=== PATIENT | male | born 1940 | race Caucasian/White ===

== ENCOUNTER 2020-08-20 13:26 | Inpatient (IN) | payer MEDICARE ==
[2020-08-20] MEDS ORDERED: Iopamidol-370 76% 500 ML 1 ML ONE (15:22)
[2020-08-20] MEDS ORDERED: Morphine 4 MG/ML VIAL ONE (15:34)
[2020-08-20 15:40] LABS: Base Excess-Venous -0.7 mmol/L (-2.0 to 3.0); Bicarbonate (HCO3v) 24.1 mmol/L (22.0-28.0); CO2 Tension (PvCO2) 39.8 mmHg (40.0-50.0); Calcium, Ionized 0.97 mmol/L (1.15-1.33); Chloride 100 mmol/L (98-107); Hemoglobin - Calc 13.8 g/dL (14.0-18.0); Potassium 4.1 mmol/L (3.5-5.1); Sodium 132 mmol/L (138-145); T. Carbon Dioxide 25.4 mmol/L (22.0-28.0); vO2 Saturation-calc 96.6 % (60.0-85.0)
[2020-08-20 15:52] LABS: ALT (SGPT) Less than 7 U/L (8-55); AST (SGOT) 13 U/L (5-34); Albumin 2.7 g/dL (3.4-4.8); Alkaline Phosphatase 101 U/L (40-110); Anion Gap 15 mmol/L (10-20); BUN (Urea Nitrogen) 29 mg/dL (8.4-25.7); Bilirubin, Total 0.5 mg/dL (0.2-1.2); Calc. Creatinine Clearance 0 mL/min (70-130); Calcium 8.4 mg/dL (7.8-10.44); Carbon Dioxide 23 mmol/L (23-31); Chloride 99 mmol/L (98-107); Estimated GFR-MDRD 39; Glucose 265 mg/dL (83-110); Potassium 4.2 mmol/L (3.5-5.1); Protein, Total 6.7 g/dL (5.8-8.1); Sodium 133 mmol/L (136-145)
--- NOTE | 2020-08-20 16:03 | CT ---
CT ANGIOGRAM THORAX WITH CONTRAST: (CTA pulmonary angiogram) DATE: 08/20/2020 HISTORY: 80-year-old male with cough, fever, chest pain, and dyspnea TECHNIQUE: IV injection of iodinated contrast. Scan acquisition timing attempted to coincide with iodinated contrast bolus reaching maximal density in pulmonary arteries. 3-D MIP reconstructions. FINDINGS: There is right inferior hilar soft tissue density material surrounding and severely narrowing the rig ht lower lobe bronchus, completely occluding the anterobasilar segmental branch, and severely narrowing the other branches. This soft tissue density material is contiguous with the adjacent conso lidated portion of the anterolateral basilar segment of the right lower lobe, and therefore measurement is difficult, but it is estimated to be approximately 2.5 x 1.5 x 2.5 cm. The broad conso lidation involving the anterobasilar segment of the right lower lobe is consistent with postobstructive atelectasis and/or pneumonitis. Posterior to this, there are very extensive groundgla ss/alveolar infiltrates throughout the rest of the right lower lobe remaining basilar segments and much of the apical segment, consistent with pneumonitis. The right upper lobe, right middle lobe, and the entire left lung, are clear. No pleural effusion or pneumothorax. Trachea and bilateral mainstem bronchi are patent and clear. Multiple mildly enlarged noncalcified mediastinal lymph nodes. Most of these are nonspecific, but the re is one right paratracheal lymph node measuring measuring approximately 1.5 x 1 x 2 cm that is somewhat suspicious. There is excellent opacification of pulmonary arteries. There is no pulmonary thromboembolism. No thoracic aortic aneurysm, dissection, or rupture. No pericardial effusion. Approximately 15-20% herniation of stomach into the chest. IMPRESSION: 1) small circumferential mass extrinsically compressing and occluding the anteromedial basilar segmen rui branch of right lower lobe bronchus, highly suspicious for lung cancer. Recommend bronchoscopy. 2) associated broad consolidation of anterobasal segment of right lower lobe: Postobstructive atelect asis versus postobstructive pneumonia. 3) severe narrowing of other basilar segmental branches of right lower lobe bronchus. 4) diffuse infiltrates throughout the rest of the right lower lobe: Evidence for right lower lobe pne umonia. 5) no pulmonary thromboembolism. 6) possible metastatic mediastinal lymphadenopathy.
[2020-08-20 17:41] LABS: SARS-CoV-2 NAA Rapid Test Not Detected (NotDetected)
--- NOTE | 2020-08-20 18:28 | HP ---
PRIMARY CARE PHYSICIAN: Jorge Luis Santiago. CHIEF COMPLAINT: Chest pain and cough. HISTORY OF PRESENT ILLNESS: This is an 80-year-old white male with past medical history consisted of diabetes mellitus type 2, insulin dependent, who came in with a 2-3 week history of right-sided chest pain with severe cough and some confusion and hallucination episodes. The patient has been having progressive symptoms over about 2-3 weeks. His cough has been productive of a very small amount of clear sputum, no blood. He also has had some subjective fevers and chills. His temperature has only gone up to 98.6, however, usually runs around 96. The patient eventually went into the [place] [facility]. There, he had tachycardia, normal oxygen saturations on room air, temperature up to 100.0. He was given morphine with marked improvement in his symptoms, also was loaded with Rocephin and azithromycin and given Ketoralac IV. The patient was found to have sepsis and acute renal failure with lactic acidosis. He was given 2 L of fluid along with some insulin for hyperglycemia and then transferred to our emergency room. He had a CT of the chest done in [place], which showed atelectasis in the posterior basilar segment of the right lower lobe with abrupt termination of the bronchus worrisome for endobronchial lesion. He was transferred here. The patient had an elevated D-dimer. After the fluids were given, his creatinine was rechecked and it had come down to 1.6, so he had a CT angio, which showed no evidence of clots, but again demonstrated a small circumferential mass extrinsically compressing and occluding the anterior medial basilar segment branch of the right lower lobe bronchus, highly suspicious for lung cancer with recommendation of bronchoscopy. Also had infiltrates distal to this concerning for a postobstructive pneumonia with infiltrates throughout the rest of the right lower lobe. When I saw him, the patient was breathing easily without any further pain and having intermittent coughing. REVIEW OF SYSTEMS: CONSTITUTIONAL: See HPI. EYES: No double vision or blurred vision. ENT: No congestion, drainage, or sore throat. CARDIOVASCULAR: No cardiac chest pain. No palpitations or racing heart. PULMONARY: See HPI. No significant shortness of breath. No pain with deep breaths, just with cough. The pain is in the anterior axillary line along the lower right chest and is not reproducible to palpation. GASTROINTESTINAL: No abdominal pain. No nausea or vomiting. No diarrhea or constipation. GENITOURINARY: No dysuria or hematuria. He does have urinary frequency; in the past, this has responded to medications, but for the last four weeks or so, it has been not responding to his medications from his PCP. MUSCULOSKELETAL: No muscle aches or joint pain. SKIN: No rashes or other lesions he has noted. NEUROLOGIC: No numbness, tingling, or focal weakness. PSYCHIATRIC: The patient reports that for the last 2-1/2 to 3 weeks as per the HPI, he has been having confusion. He reports that sometimes if he does not focus very hard, he will start doing odd things like taking off his dog's collar for no reason or sometimes having some odd hallucinations or I think he is putting butter on some bread and realizing he is not holding anything, this has been pretty persistent for the last 2-1/2 weeks. It is not there all the time. It does come and go, it is worse at night. He said he is able to shake himself out of it pretty quick. PAST MEDICAL HISTORY: 1. Diabetes mellitus type 2, insulin dependent. 2. Diabetic neuropathy of the lower extremities. 3. Hyperlipidemia. 4. Left-sided abdominal wall hernia. PAST SURGICAL HISTORY: Adenoidectomy and tonsillectomy. PAST PSYCHIATRIC HISTORY: Anxiety and depression. SOCIAL HISTORY: No tobacco use or history of use. No illicit drugs. He drinks socially about once a month. The patient is . He is a full code. Should he be incapacitated, his would be his medical decision maker, her name is Lisseth Saab. FAMILY HISTORY: He has one cousin, who has severe diabetes as well, but no other family medical history. ALLERGIES: NO KNOWN DRUG ALLERGIES. CURRENT MEDICATIONS: 1. Simvastatin 20 mg daily. 2. Janumet mg one tablet twice a day. 3. Glipizide 10 mg two times a day. 4. Lisinopril 20 mg daily. 5. Lamictal 100 mg twice a day. 6. Basaglar insulin 20 units subcutaneous twice a day. 7. Ultram 50 mg 2 tablets every 6 hours as needed for pain. PHYSICAL EXAMINATION: VITAL SIGNS: Blood pressure 116/73, pulse 84, respirations 23, temperature 98.4, and O2 saturation 98% on room air. GENERAL: This is a well-developed, well-nourished white male, in no acute distress. HEENT: Pupils are equal, round, and reactive to light. Oropharynx is clear without lesions, erythema, or exudate. NECK: Supple. No lymphadenopathy. No thyroid nodules or enlargement. No JVD. HEART: Regular rate and rhythm. No murmurs, rubs, or gallops. LUNGS: The patient has clear breath sounds in the left lung. In the right lung at the base, there are some rhonchi and some diminished breath sounds to about the mid lung. The remainder of the lung is clear. No tenderness to palpation of the chest wall. Pain is not reproducible. ABDOMEN: Soft, nontender to palpation. Normoactive bowel sounds. No hepatosplenomegaly or other masses. EXTREMITIES: No clubbing, cyanosis, or edema. SKIN: No rashes or other lesions noted. NEUROLOGIC: The patient moves all extremities equally. No facial droop. PSYCHIATRIC: Alert and oriented x3. Normal mood and affect. He has had reports of hallucinations as per the HPI, but does not actively have any right now. LABORATORY DATA: CBC with a white blood cell count of 20,000, hemoglobin and hematocrit normal, platelet count 484, neutrophils are 79%. D-dimer is elevated at 1.55. VBG has normal pH, pCO2 of 39, pO2 of 87. Complete metabolic panel is notable for initially a sodium of 129 up to 133 after fluids, potassium 4.2, chloride 99, bicarb 23, anion gap 15, BUN 29, and creatinine was 1.96, down to 1.68 after fluids. Blood glucose initially 543 down to 265 after insulin and fluid administration. Albumin was low at 2.7. The rest of CMP was normal. Troponin was negative x2. Brain natriuretic peptide was negative. Lactic acid was initially elevated at 3.0, down to 2.[address] of the chest as per the HPI. CT of the brain shows no evidence for acute intracranial process. Chest x-ray done in the emergency room, I did review the chest x-ray as well as radiologist's report. It shows right-sided pleural effusion with some parenchymal changes in the right lung base, possibly pneumonia, atelectasis, or aspiration. EKG in the emergency room shows normal sinus rhythm at 84 beats per minute with no ST elevation. There is some T-wave flattening in II, III, and aVF. ASSESSMENT: 1. Community-acquired pneumonia, postobstructive. We will continue Rocephin and vancomycin. We will have pharmacy dose the vancomycin. Blood cultures are pending. 2. Right circumferential bronchial mass concerning for likely cancer. We will consult Pulmonology. The patient will need a bronchoscopy for diagnosis. 3. Diabetes mellitus type 2, insulin dependent with hyperglycemia. Blood glucose better with insulin and fluids. We will resume the patient's home long-acting insulin and put him on moderate sliding scale q.a.c. and at bedtime. 4. Hyperlipidemia. Resume the patient's home medications. 5. Delirium symptoms on and off, likely secondary to his pneumonia. We will monitor closely in the hospital. 6. Gastrointestinal prophylaxis, put the patient on Pepcid twice a day. 7. Deep venous thrombosis prophylaxis, put the patient on Lovenox subcu. CODE STATUS: I did discuss this with the patient. He is a full code. Should he be incapacitated, his would be his medical decision maker, her name is Lisseth Saab. Job ID: [id number]
[2020-08-20 19:20] LABS: Lactic Acid 1.7 mmol/L (0.5-2.2)
[2020-08-20] MEDS ORDERED: Senokot S 8.6-50 MG TAB PO PRN (20:59)
[2020-08-20] MEDS ORDERED: Ondansetron PF 4 MG/2 ML Vial IVP PRN (20:59)
[2020-08-20] MEDS ORDERED: Acetaminophen 325 MG TAB PO PRN (20:59)
[2020-08-20] MEDS ORDERED: Dextrose 50% Abboject 50 ML SYRINGE SLOW IVP PRN (20:59)
[2020-08-20] MEDS ORDERED: HYDROcodone/Acetaminophen 5/325 mg Tablet PO PRN (20:59)
[2020-08-20] MEDS ORDERED: Guaifenesin DM 100-10/5 ML UDCUP PO PRN (20:59)
[2020-08-20] MEDS ORDERED: HumaLOG 300 UNITS/3 ML VIAL SC PRN (20:59)
[2020-08-20] MEDS ORDERED: Ondansetron ODT 4 MG TAB PO PRN (20:59)
[2020-08-20] MEDS ORDERED: Dextrose 5% in Water 1,000 ML IV PRN (20:59)
[2020-08-20] MEDS ORDERED: Acetaminophen 650 MG Suppository PR PRN (20:59)
[2020-08-20] MEDS ORDERED: Vancomycin HCl 1 GM in Sodium Chloride 0.9% 250 ML 250 ML IVPB SCH (21:00)
[2020-08-20 21:36] VITALS: BMI 27.7
[2020-08-20] MEDS: Morphine 2 MG/ML VIAL SLOW IVP PRN (21:48)
[2020-08-20] MEDS: Sodium Chloride 0.9% 1,000 ML IV SCH (21:48)
[2020-08-20] MEDS: Insulin Glargine 20 UNITS in Pre-Filled Syringe 1 EACH SC SCH (21:48)
[2020-08-20] MEDS ORDERED: Vancomycin 1.5 GRAM/300 ML BAG 1.5 GM in Premix Bag 1 BAG IVPB SCH (22:00)
[2020-08-21] MEDS: Morphine 2 MG/ML VIAL SLOW IVP PRN ×2 (03:59→14:38)
[2020-08-21] MEDS ORDERED: Sodium Chloride 0.9% 500 ML IV SCH (05:30)
[2020-08-21] MEDS: HumaLOG 300 UNITS/3 ML VIAL SC PRN ×3 (06:10→17:47)
--- NOTE | 2020-08-21 07:31 | PDOC.HOSPP ---
- Subjective Encounter Date: 08/21/20 Encounter Time: 09:00 Subjective: Patient with fast heart rate this morning to 140s. Asymptomatic, improved to 110s with fluids. No fever. Patient states no more chest pain, cough markedly improved, now productive of a little thick sputum. No SOB. Feels better. I did inform him of the CT results, likelihood of cancer, and possible bronchoscopy for diagnosis. - Objective Vital Signs & Weight: Vital Signs (12 hours) Temp Pulse Resp BP Pulse Ox 08/21/20 06:13 118 H 08/21/20 04:00 97.6 F 140 H 16 136/87 92 L 08/20/20 23:40 98.3 F 93 16 118/61 94 L 08/20/20 21:38 98 F 101 H 16 158/72 H 96 Weight Weight 183 lb 1 oz I&O: 08/20/20 08/21/20 08/22/20 06:59 06:59 06:59 Intake Total 2510 Output Total 400 Balance 2110 Result Diagrams: 08/21/20 07:26 08/21/20 07:26 Additional Labs: Accuchecks 08/21/20 08/20/20 06:02 21:26 POC Glucose 235 H 188 H Hospitalist ROS - Review of Systems Constitutional: denies: fever, chills Respiratory: reports: cough. denies: shortness of breath Cardiovascular: denies: chest pain, palpitations Gastrointestinal: denies: nausea, vomiting, abdominal pain - Medication Medications: Active Medications Generic Name Dose Route Start Last Admin Trade Name Freq PRN Reason Stop Dose Admin Insulin Glargine 20 units/ 0.2 mls @ 0 mls/hr 08/20/20 21:00 08/20/20 21:48 Miscellaneous Medication SC 0.2 mls HS NIKKI Administration Sodium Chloride 1,000 mls @ 75 mls/hr 08/20/20 20:59 08/20/20 21:48 Normal Saline 0.9% IV 1,000 mls .[id number] NIKKI Administration Insulin Human Lispro 0 units 08/20/20 20:59 08/21/20 06:10 Humalog 300 Units/3 Ml Vial SC 4 unit .MODERATE SLIDING SC PRN Administration Moderate Correctional Scale Morphine Sulfate 2 mg 08/20/20 20:59 08/21/20 03:59 Morphine 2 Mg/Ml Vial SLOW IVP 2 mg Q4H PRN Administration Severe Pain (7-10) - Exam General Appearance: NAD, awake alert ENT: moist mucosa Heart: RRR, no murmur, no gallops, no rubs Respiratory: normal chest expansion, no tachypnea Respiratory - other findings: few rhonchi in right base, decent air movement otherwise Gastrointestinal: soft, non-tender, non-distended, normal bowel sounds Psychiatric: normal affect, normal behavior, A&O x 3 Hosp A/P (1) CAP (community acquired pneumonia) Code(s): J18.9 - PNEUMONIA, UNSPECIFIED ORGANISM Status: Acute (2) Sepsis Code(s): A41.9 - SEPSIS, UNSPECIFIED ORGANISM Status: Acute (3) Mass of right lung Code(s): R91.8 - OTHER NONSPECIFIC ABNORMAL FINDING OF LUNG FIELD Status: Acute (4) Delirium due to another medical condition Code(s): F05 - DELIRIUM DUE TO KNOWN PHYSIOLOGICAL CONDITION Status: Acute (5) Diabetes mellitus type 2, insulin dependent Code(s): E11.9 - TYPE 2 DIABETES MELLITUS WITHOUT COMPLICATIONS; Z79.4 - NURSING HOME (CURRENT) USE OF INSULIN Status: Chronic (6) HLD (hyperlipidemia) Code(s): E78.5 - HYPERLIPIDEMIA, UNSPECIFIED Status: Chronic - Plan Patient with tachycardia starting this AM. EKG done and shows sinus tach with Type 1 2nd degree heart block. Will move to telemetry. No fever. On Rocephin and Vancomycin since 08/20/2020 Lab pending this morning. Pulmonology consult. Will likely need bronchoscopy to determine etiology of lung mass. DVT Proph: Lovenox GI Proph: Pepcid
[2020-08-21 07:39] LABS: #Basophils 0.1 thou/uL (0.0-0.2); #Eosinphils 0.2 thou/uL (0.0-0.7); #Lymphocytes 2.5 thou/uL (1.20-3.40); #Monocytes 1.8 thou/uL (0.11-0.59); #Neutrophils 14.9 thou/uL (1.40-6.50); %Basophils 0.4 % (0.0-1.0); %Eosinophils 1.2 % (0.0-10.0); %Lymphocytes 12.9 % (21.0-51.0); %Monocytes 9.4 % (0.0-10.0); %Neutrophils 76.1 % (42.0-75.0); Hemoglobin 13.7 g/dL (14.0-18.0); Mean Corpuscular HGB CONC 32.1 g/dL (32.0-36.0); Mean Corpuscular Hemoglobin 30.3 pg (27.0-31.0); Mean Corpuscular Volume 94.2 fL (78.0-98.0); Mean Platelet Volume 6.8 fL (7.4-10.4); Platelet Count 458 thou/uL (130-400); RBC Distribution Width 10.8 % (11.5-14.5); Red Blood Cell (RBC) Count 4.54 mill/uL (4.70-6.10); White Blood Cell (WBC) Count 19.5 thou/uL (4.8-10.8)
[2020-08-21 07:57] LABS: Anion Gap 14 mmol/L (10-20); BUN (Urea Nitrogen) 29 mg/dL (8.4-25.7); Calc. Creatinine Clearance 43 mL/min (70-130); Calcium 8.2 mg/dL (7.8-10.44); Carbon Dioxide 22 mmol/L (23-31); Chloride 98 mmol/L (98-107); Estimated GFR-MDRD 42; Glucose 306 mg/dL (83-110); Potassium 4.2 mmol/L (3.5-5.1); Sodium 130 mmol/L (136-145)
[2020-08-21] MEDS: Enoxaparin Sodium 40 MG/0.4 ML SYRINGE SC SCH (09:00)
[2020-08-21] MEDS: Famotidine 20 MG TAB PO SCH (09:00)
[2020-08-21] MEDS: Insulin Glargine 20 UNITS in Pre-Filled Syringe 1 EACH SC SCH ×2 (09:00→21:29)
[2020-08-21] MEDS: cefTRIAXone\\ROCEPHIN 2 GM in Sodium Chloride 0.9% 100 ML IVPB SCH (11:11)
[2020-08-21] MEDS: HYDROcodone/Acetaminophen 5/325 mg Tablet PO PRN (16:07)
[2020-08-21] MEDS: Sodium Chloride 0.9% 1,000 ML IV SCH (17:47)
--- NOTE | 2020-08-21 20:17 | CT ---
EXAM: CT brain without contrast HISTORY: Headache and neck pain COMPARISON: 08/20/2020 TECHNIQUE: Multiple contiguous axial images were obtained and a CT of the brain without contrast. FINDINGS: There are scattered hypodensities in the subcortical and periventricular white matter consi stent with small vessel ischemic disease. There is no evidence of hydrocephalus, intracranial hemorrhage, or extra-axial fluid collection. The calvarium and overlying soft tissues are unremarkable. The visualized paranasal sinuses and masto id air cells are well aerated. IMPRESSION: No evidence of acute intracranial abnormality
--- NOTE | 2020-08-21 20:27 | CT ---
CT CERVICAL SPINE WITHOUT CONTRAST: 08/21/20 HISTORY: Neck is sore after fall. Pain. FINDINGS: No craniocervical dissociation. Appropriate alignment of the lateral masses of C1 and C2. There is mu ltilevel facet arthropathy. There is resultant anterolisthesis. There is 2.4 mm of anterolisthesis of C4 uponC5 and 2.8 mm anterolisthesis of C5 upon C6. Odontoid process is intact. There is moderate loss of vertebral body height at C5, C6 and C7 likely c hronic. There is no prevertebral soft tissue swelling. No acute abnormality in the visualized soft tissue neck structures. Symmetric attenuation of the para spinal muscles. There are varying degrees of central canal stenosis and neural foraminal narrowing on the basis of de generative change. Technique limits evaluation. There is no evidence of an acute cervical spine fracture. IMPRESSION: 1. No acute cervical spine fracture. 2. Extensive degenerative changes throughout the cervical spine. 3. Chronic compression fractures at C5, C6 and C7. POS: PPP
[2020-08-21] MEDS ORDERED: FLU VACC QS2020-21(65YR UP)/PF 240 MCG/0.7 ML SYRINGE IM ONE (21:00)
--- NOTE | 2020-08-21 21:07 | CON ---
DATE OF CONSULTATION: 08/21/2020 CHIEF COMPLAINT: Abnormal chest x-ray. HISTORY OF PRESENT ILLNESS: Mr. Saab is an 80-year-old gentleman who states that he was in his usual state of excellent health until approximately 3 weeks ago. At that time, he began to note a cough, which has never been productive of any sputum or blood. He has not had any fevers or chills. He describes pleuritic pain over the anterior right chest, which is worsened with cough or deep inspiration. He has had no fevers or chills. He did have a few days where he was having difficulty swallowing, but that has resolved. He never had difficulty with phonation. His appetite is down a little and he feels that he has lost about 5 pounds in the past 3 weeks. He has had no nausea or vomiting. The pain became so severe that [facility] where he was mildly tachycardic. He had an infiltrate reported to be in the left, although his x-ray to mt shows findings on the right. He received Rocephin and azithromycin. He received saline for possible sepsis protocol. He has subsequently been admitted to the hospital for evaluation and treatment of the radiographic findings discussed below. SOCIAL HISTORY: The patient is an 80-year-old gentleman. He has medication intolerance to sulfa. He smoked many years ago, none in about 35 years. He did not have an occupation or industrial exposure to carcinogens. 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 HOME MEDICATIONS: Include; 1. Simvastatin 20 daily. 2. Janumet b.i.d. 3. Glipizide 10 b.i.d. 4. Lisinopril 20 daily. 5. Lamictal daily. 6. Basaglar 20 units b.i.d. 7. Ultram p.r.n. PAST MEDICAL HISTORY: Remarkable for diabetes and dyslipidemia. He has had some unusual behaviors in the past several weeks and states that he has felt a little weak. REVIEW OF SYSTEMS: Remarkable as above. FAMILY HISTORY: Noncontributory. PHYSICAL EXAMINATION: VITAL SIGNS: Blood pressure 125/80, heart rate 109. He is afebrile. Saturation 94% on room air. GENERAL: He is an 80-year-old gentleman, appears younger than his stated age. HEENT: Shows no icterus. Ocular movements are intact. Oropharynx is benign. NECK: Shows no adenopathy. His neck is slightly enlarged, but no JVD. Carotid bruit present. LUNGS: Show rhonchi in the right posterior base, which do not improve with deep inspiratory effort. I do not hear a rub. HEART: Regular rate and rhythm with resting tachycardia. ABDOMEN: Soft, mildly obese. EXTREMITIES: Without cyanosis, clubbing, or edema. LABORATORY DATA: White count 19,500, hemoglobin is 13.7 with hematocrit of 42.7, and platelet count 458,000. Sodium is slightly low at 130, potassium 4.2, chloride 98, CO2 is 22, BUN 29, and creatinine 1.6. Glucose has ranged from 188 to 306. Liver tests are negative. CAT scan of the chest shows right paratracheal lymph node in the 4R position. There is narrowing of the right bronchus intermedius and some atelectasis involving the right lower lung, although possibly could involve the right middle lung. There is no effusion. CT of the head shows no evidence of intracranial pathology. IMPRESSION: 1. Abnormal chest x-ray with peritracheal node and mass in the lower right hilum with extrinsic narrowing of the bronchus intermedius and some evidence of atelectasis involving the right lower lung. 2. Remote tobacco history. 3. Pleuritic pain. 4. Leukocytosis. RECOMMENDATIONS: I am not opposed to antibiotics, although most likely this is postobstructive and hence not commonly responsive to antibiotic therapy. I reviewed the radiographic findings with him and discussed the need for bronchoscopy for tissue diagnosis. Ideally, this would be done with the EBUS, but I think certainly we could get a tissue diagnosis with traditional bronchoscopy. Risks, benefits, and alternatives to the procedure are discussed with the patient and we will tentatively post him for surgery on Sunday. In the interim, we will continue current therapies. From a purely pulmonary perspective, he could be discharged following his bronchoscopy to follow up in the office for pathology report. Thank you for this interesting and unfortunate consultation. Job ID: [id number]
[2020-08-21] MEDS ORDERED: Vancomycin HCl 1.25 GM in Sodium Chloride 0.9% 250 ML 250 ML IVPB SCH (22:00)
[2020-08-22] MEDS: HumaLOG 300 UNITS/3 ML VIAL SC PRN ×3 (06:11→18:05)
[2020-08-22] MEDS: Sodium Chloride 0.9% 1,000 ML IV SCH ×2 (08:34→12:15)
[2020-08-22] MEDS: Enoxaparin Sodium 40 MG/0.4 ML SYRINGE SC SCH (08:34)
[2020-08-22] MEDS: Famotidine 20 MG TAB PO SCH (08:34)
[2020-08-22] MEDS: Insulin Glargine 20 UNITS in Pre-Filled Syringe 1 EACH SC SCH ×2 (08:44→22:20)
[2020-08-22 09:01] LABS: #Basophils 0.1 thou/uL (0.0-0.2); #Eosinphils 0.3 thou/uL (0.0-0.7); #Lymphocytes 2.4 thou/uL (1.20-3.40); #Monocytes 1.7 thou/uL (0.11-0.59); #Neutrophils 12.2 thou/uL (1.40-6.50); %Basophils 0.8 % (0.0-1.0); %Eosinophils 1.5 % (0.0-10.0); %Lymphocytes 14.4 % (21.0-51.0); %Monocytes 10.1 % (0.0-10.0); %Neutrophils 73.2 % (42.0-75.0); Hemoglobin 12.8 g/dL (14.0-18.0); Mean Corpuscular Hemoglobin 30.5 pg (27.0-31.0); Mean Corpuscular Volume 92.5 fL (78.0-98.0); Mean Platelet Volume 6.5 fL (7.4-10.4); Platelet Count 450 thou/uL (130-400); RBC Distribution Width 10.8 % (11.5-14.5); White Blood Cell (WBC) Count 16.7 thou/uL (4.8-10.8)
[2020-08-22 09:27] LABS: Anion Gap 12 mmol/L (10-20); BUN (Urea Nitrogen) 21 mg/dL (8.4-25.7); Calc. Creatinine Clearance 58 mL/min (70-130); Calcium 8.1 mg/dL (7.8-10.44); Carbon Dioxide 24 mmol/L (23-31); Chloride 102 mmol/L (98-107); Estimated GFR-MDRD 59; Glucose 185 mg/dL (83-110); Potassium 3.8 mmol/L (3.5-5.1); Sodium 134 mmol/L (136-145)
[2020-08-22] MEDS: cefTRIAXone\\ROCEPHIN 2 GM in Sodium Chloride 0.9% 100 ML IVPB SCH (12:16)
[2020-08-22] MEDS: HYDROcodone/Acetaminophen 5/325 mg Tablet PO PRN (12:16)
--- NOTE | 2020-08-22 13:39 | PDOC.HOSPP ---
- Subjective Encounter Date: 08/22/20 Encounter Time: 10:30 Subjective: Patient has no chest pain no short of breath his cough is getting better. pt Is asking about CT abdomen when actually there is no CT abdomen is performed. Reports her CT head as well as cervical spine report discussed with the patient. Possible bronchoscopy biopsy tomorrow. - Objective Vital Signs & Weight: Vital Signs (12 hours) Temp Pulse Resp BP Pulse Ox 08/22/20 12:00 97.9 F 89 17 135/71 96 08/22/20 08:00 98.4 F 79 17 148/81 H 97 08/22/20 04:55 99.0 F 08/22/20 03:42 100.9 F H 97 18 134/87 93 L Weight Weight 185 lb I&O: 08/21/20 08/22/20 08/23/20 06:59 06:59 06:59 Intake Total 2510 2535 Output Total 400 675 Balance 2110 1860 Result Diagrams: 08/22/20 08:49 08/22/20 08:49 Additional Labs: Accuchecks 08/22/20 08/21/20 08/21/20 10:48 19:58 17:34 POC Glucose 231 H 102 H 227 H Hospitalist ROS - Medication Medications: Active Medications Generic Name Dose Route Start Last Admin Trade Name Freq PRN Reason Stop Dose Admin Acetaminophen 650 mg 08/20/20 20:59 08/22/20 03:45 Acetaminophen 325 Mg Tab PO 650 mg Q4H PRN Administration Headache/Fever/Mild Pain (1-3) Hydrocodone Bitart/Acetaminophen 2 tab 08/20/20 20:59 08/22/20 12:16 Hydrocodone/Acetaminophen 5/325 Mg Tablet PO 2 tab Q4H PRN Administration Severe Pain (7-10) Enoxaparin Sodium 40 mg 08/21/20 09:00 08/22/20 08:34 Enoxaparin Sodium 40 Mg/0.4 Ml Syringe SC 40 mg 0900 NIKKI Administration Famotidine 20 mg 08/21/20 09:00 08/22/20 08:34 Famotidine 20 Mg Tab PO 20 mg DAILY NIKKI Administration Ceftriaxone Sodium 2 gm/ 100 mls @ 200 mls/hr 08/21/20 11:00 08/22/20 12:16 Sodium Chloride IVPB 100 mls Q24HR NIKKI Administration Insulin Glargine 20 units/ 0.2 mls @ 0 mls/hr 08/20/20 21:00 08/21/20 21:29 Miscellaneous Medication SC 0.2 mls HS NIKKI Administration Insulin Glargine 20 units/ 0.2 mls @ 0 mls/hr 08/21/20 09:00 08/22/20 08:44 Miscellaneous Medication SC 0.2 mls QAM NIKKI Administration Sodium Chloride 1,000 mls @ 75 mls/hr 08/20/20 20:59 08/22/20 12:15 Normal Saline 0.9% IV 1,000 mls .[id number] NIKKI Administration Vancomycin HCl 1.25 gm/ Sodium 250 mls @ 166.667 mls/hr 08/21/20 22:00 08/21/20 21:29 Chloride IVPB 250 mls Q24HR NIKKI Administration Insulin Human Lispro 0 units 08/20/20 20:59 08/22/20 12:00 Humalog 300 Units/3 Ml Vial SC 4 unit .MODERATE SLIDING SC PRN Administration Moderate Correctional Scale Morphine Sulfate 2 mg 08/20/20 20:59 08/21/20 14:38 Morphine 2 Mg/Ml Vial SLOW IVP 2 mg Q4H PRN Administration Severe Pain (7-10) - Exam General Appearance: NAD, awake alert Eye: PERRL ENT: normocephalic atraumatic Neck: supple Heart: RRR Respiratory: CTAB Gastrointestinal: soft, normal bowel sounds Neurological: no focal deficits Psychiatric: A&O x 3 Hosp A/P - Plan (1) CAP (community acquired pneumonia) Code(s): J18.9 - PNEUMONIA, UNSPECIFIED ORGANISM Status: Acute (2) Sepsis Code(s): A41.9 - SEPSIS, UNSPECIFIED ORGANISM Status: Acute (3) Mass of right lung Code(s): R91.8 - OTHER NONSPECIFIC ABNORMAL FINDING OF LUNG FIELD Status: Acute (4) Delirium due to another medical condition Code(s): F05 - DELIRIUM DUE TO KNOWN PHYSIOLOGICAL CONDITION Status: Acute (5) Diabetes mellitus type 2, insulin dependent Code(s): E11.9 - TYPE 2 DIABETES MELLITUS WITHOUT COMPLICATIONS; Z79.4 - DIRECTOR OF TEACHING AND LEARNING (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 -Make sure electrolytes are replenished. Peritracheal node on the lower right hilum mass and narrowing of the bronchus. -Probable bronchoscopy evaluation tomorrow with biopsy. Postprocedure if he is doing well [hemodynamically stable], will plan for discharge and then follow-up for the biopsy results as well as further plan as an outpatient. Leukocytosis trending down -Blood cultures negative so far -Negative for influenza test -Continue to Banken the ceftriaxone until the procedure completed. -Keep him n.p.o. tonight. DVT Proph: Lovenox GI Proph: Pepcid
[2020-08-22] MEDS ORDERED: Lidocaine 4% PF 5 ML AMP NEB SCH (15:15)
--- NOTE | 2020-08-22 15:48 | PRG ---
DATE OF SERVICE: SUBJECTIVE: Mr. Saab states he is feeling a little bit better. He has been able to walk into the hallways with less shortness of breath. He is still having some discomfort of the anterior right chest with cough or deep breathing, but he has had no fevers or chills. PHYSICAL EXAMINATION: VITAL SIGNS: Blood pressure 135/71, currently afebrile, although temperature 100.9 earlier this morning. Saturation 96% on room air. GENERAL: He is not using accessory muscles and has no evidence of acute respiratory distress. LUNGS: Mildly hyperinflated. There is some rhonchi in the right posterior lung field. HEART: Regular rate and rhythm. ABDOMEN: Soft, obese, but without organomegaly. EXTREMITIES: He has no edema. LABORATORY DATA: White count today is 16,700, hemoglobin is 12.8 with hematocrit 38.8, and platelet count of 450,000. Chemistry includes sodium 134, potassium 3.8, chloride 102, CO2 is 24, BUN 21, creatinine 1.18. Glucose this morning 185, but has ranged from a low of 100 to a maximum of 306. IMPRESSION: Abnormal chest x-ray with right lung mass and evidence of right lower lobe segmental atelectasis. This is suggestive of malignancy. PLAN: He is on antibiotics. I am going to discontinue the vancomycin and continue Rocephin. We will plan bronchoscopy tomorrow. I do not think that this is traditional pneumonia, but more likely postobstructive and therefore unlikely to respond to antibiotic therapy. I would anticipate that he can follow up in the Pulmonary office later in the week following bronchoscopy for test results and further discussion of treatment considerations. Risks, benefits, and alternatives of bronchoscopy are discussed. The patient agrees and I will prepare the orders for procedure tomorrow. Job ID: [id number]
[2020-08-22] MEDS: Morphine 2 MG/ML VIAL SLOW IVP PRN ×2 (17:14→20:27)
[2020-08-23] MEDS: Sodium Chloride 0.9% 1,000 ML IV SCH (03:37)
[2020-08-23 04:32] LABS: #Basophils 0.1 thou/uL (0.0-0.2); #Eosinphils 0.3 thou/uL (0.0-0.7); #Lymphocytes 2.6 thou/uL (1.20-3.40); #Monocytes 1.8 thou/uL (0.11-0.59); #Neutrophils 12.5 thou/uL (1.40-6.50); %Basophils 0.7 % (0.0-1.0); %Eosinophils 1.6 % (0.0-10.0); %Lymphocytes 15.1 % (21.0-51.0); %Monocytes 10.2 % (0.0-10.0); %Neutrophils 72.4 % (42.0-75.0); Mean Corpuscular HGB CONC 32.5 g/dL (32.0-36.0); Mean Corpuscular Hemoglobin 30.5 pg (27.0-31.0); Mean Corpuscular Volume 94.1 fL (78.0-98.0); Mean Platelet Volume 6.7 fL (7.4-10.4); Platelet Count 497 thou/uL (130-400); RBC Distribution Width 10.9 % (11.5-14.5); Red Blood Cell (RBC) Count 4.24 mill/uL (4.70-6.10); White Blood Cell (WBC) Count 17.2 thou/uL (4.8-10.8)
[2020-08-23 04:55] LABS: Anion Gap 14 mmol/L (10-20); BUN (Urea Nitrogen) 13 mg/dL (8.4-25.7); Calc. Creatinine Clearance 68 mL/min (70-130); Calcium 8.2 mg/dL (7.8-10.44); Carbon Dioxide 24 mmol/L (23-31); Chloride 102 mmol/L (98-107); Estimated GFR-MDRD 71; Glucose 88 mg/dL (83-110); Potassium 3.7 mmol/L (3.5-5.1); Sodium 136 mmol/L (136-145)
[2020-08-23] MEDS ORDERED: Fentanyl 100 MCG/2 ML VIAL ONE (11:15)
[2020-08-23] MEDS ORDERED: Sodium Chloride 0.9% 100 ML ONE (11:24)
[2020-08-23] MEDS ORDERED: cefTRIAXone\\ROCEPHIN 2 GM VIAL ONE (11:24)
[2020-08-23] MEDS ORDERED: Promethazine HCl 25 MG/ML VIAL SLOW IVP PRN (12:43)
[2020-08-23] MEDS ORDERED: Promethazine HCl 25 MG/ML VIAL IM PRN (12:43)
[2020-08-23] MEDS ORDERED: Ondansetron HCl/PF 4 MG/2 ML Vial IVP PRN (12:43)
--- NOTE | 2020-08-23 12:56 | PDOC.HOSPP ---
- Subjective Encounter Date: 08/23/20 Encounter Time: 09:40 Subjective: Patient appears well. He is scheduled to go to the bronchoscopy today. He has no distress. 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 - Objective Vital Signs & Weight: Vital Signs (12 hours) Temp Pulse Resp BP Pulse Ox 08/23/20 07:55 97.9 F 85 16 153/81 H 96 08/23/20 03:30 98.7 F 61 16 148/62 H 95 Weight Weight 186 lb I&O: 08/22/20 08/23/20 08/24/20 06:59 06:59 06:59 Intake Total 2535 2070 Output Total 675 1525 Balance 1860 545 Result Diagrams: 08/23/20 03:56 08/23/20 03:56 Additional Labs: Accuchecks 08/23/20 08/23/20 08/22/20 11:05 06:22 21:10 POC Glucose 105 H 79 103 H 08/22/20 16:26 POC Glucose 224 H Hospitalist ROS - Medication Medications: Active Medications Generic Name Dose Route Start Last Admin Trade Name Freq PRN Reason Stop Dose Admin Acetaminophen 650 mg 08/20/20 20:59 08/22/20 03:45 Acetaminophen 325 Mg Tab PO 650 mg Q4H PRN Administration Headache/Fever/Mild Pain (1-3) Hydrocodone Bitart/Acetaminophen 2 tab 08/20/20 20:59 08/22/20 12:16 Hydrocodone/Acetaminophen 5/325 Mg Tablet PO 2 tab Q4H PRN Administration Severe Pain (7-10) Enoxaparin Sodium 40 mg 08/21/20 09:00 08/22/20 08:34 Enoxaparin Sodium 40 Mg/0.4 Ml Syringe SC 40 mg 0900 NIKKI Administration Famotidine 20 mg 08/21/20 09:00 08/22/20 08:34 Famotidine 20 Mg Tab PO 20 mg DAILY NIKKI Administration Ceftriaxone Sodium 2 gm/ 100 mls @ 200 mls/hr 08/21/20 11:00 08/22/20 12:16 Sodium Chloride IVPB 100 mls Q24HR NIKKI Administration Insulin Glargine 20 units/ 0.2 mls @ 0 mls/hr 08/20/20 21:00 08/22/20 22:20 Miscellaneous Medication SC Not Given HS NIKKI Insulin Glargine 20 units/ 0.2 mls @ 0 mls/hr 08/21/20 09:00 08/22/20 08:44 Miscellaneous Medication SC 0.2 mls QAM NIKKI Administration Sodium Chloride 1,000 mls @ 50 mls/hr 08/23/20 06:00 08/23/20 03:37 Normal Saline 0.9% IV 1,000 mls .Q20H NIKKI Administration Insulin Human Lispro 0 units 08/20/20 20:59 08/22/20 18:05 Humalog 300 Units/3 Ml Vial SC 4 unit .MODERATE SLIDING SC PRN Administration Moderate Correctional Scale Morphine Sulfate 2 mg 08/20/20 20:59 08/22/20 20:27 Morphine 2 Mg/Ml Vial SLOW IVP 2 mg Q4H PRN Administration Severe Pain (7-10) - Exam General Appearance: NAD, awake alert Eye: PERRL ENT: normocephalic atraumatic Neck: supple Heart: RRR, normal peripheral pulses Respiratory: CTAB, normal chest expansion Gastrointestinal: soft, normal bowel sounds Neurological: cranial nerve grossly intact, no focal deficits Psychiatric: A&O x 3 Hosp A/P - Plan (1) CAP (community acquired pneumonia) Code(s): J18.9 - PNEUMONIA, UNSPECIFIED ORGANISM Status: Acute (2) Sepsis Code(s): A41.9 - SEPSIS, UNSPECIFIED ORGANISM Status: Acute (3) Mass of right lung Code(s): R91.8 - OTHER NONSPECIFIC ABNORMAL FINDING OF LUNG FIELD Status: Acute (4) Delirium due to another medical condition Code(s): F05 - DELIRIUM DUE TO KNOWN PHYSIOLOGICAL CONDITION Status: Acute (5) Diabetes mellitus type 2, insulin dependent Code(s): E11.9 - TYPE 2 DIABETES MELLITUS WITHOUT COMPLICATIONS; Z79.4 - 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 -Make sure electrolytes are replenished. Peritracheal node on the lower right hilum mass and narrowing of the bronchus. -Probable bronchoscopy evaluation tomorrow with biopsy. Postprocedure if he is doing well [hemodynamically stable], will plan for discharge and then follow-up for the biopsy results as well as further plan as an outpatient. Leukocytosis trending down -Blood cultures negative so far -Negative for influenza test -Continue to Banken the ceftriaxone until the procedure completed. -Keep him n.p.o. tonight. DVT Proph: Lovenox GI Proph: Pepcid 16th Bronchoscopy today.
[2020-08-23] MEDS: Famotidine 20 MG TAB PO SCH (14:03)
[2020-08-23] MEDS ORDERED: Lidocaine 1% PF 5 ML VIAL ONE (14:03)
[2020-08-23] MEDS ORDERED: Ondansetron PF 4 MG/2 ML Vial ONE (14:03)
[2020-08-23] MEDS ORDERED: PROPOFOL 200 MG/20 ML VIAL ONE (14:03)
[2020-08-23] MEDS ORDERED: Rocuronium Bromide 10 MG/ML (10ML VIAL) ONE (14:03)
[2020-08-23] MEDS ORDERED: Glycopyrrolate 0.2 MG/ML 5 ML SYRINGE ONE (14:03)
[2020-08-23] MEDS ORDERED: Succinylcholine 200 MG/10 ml SYRINGE FS ONE (14:03)
[2020-08-23] MEDS: Insulin Glargine 20 UNITS in Pre-Filled Syringe 1 EACH SC SCH ×2 (14:04→20:41)
[2020-08-23] MEDS: Enoxaparin Sodium 40 MG/0.4 ML SYRINGE SC SCH (14:04)
[2020-08-23] MEDS: cefTRIAXone\\ROCEPHIN 2 GM in Sodium Chloride 0.9% 100 ML IVPB SCH (14:08)
--- NOTE | 2020-08-23 18:24 | OP ---
DATE OF PROCEDURE: 08/23/2020 PROCEDURE PERFORMED: Fiberoptic bronchoscopy. PREOPERATIVE DIAGNOSIS: Right lower lobe mass. POSTOPERATIVE DIAGNOSIS: Right lower lobe mass. ANESTHESIA: General endotracheal. DESCRIPTION OF PROCEDURE: Informed consent was obtained prior to the procedure. The patient understood the risks involved including bleeding, infection, and external lung puncture, and agreed to proceed. The patient was brought to the operating room. He was placed on cardiopulmonary monitoring. He was intubated by Anesthesia with an 8.0 endotracheal tube and given deep sedation and general endotracheal anesthesia. The Olympus bronchoscope was placed through an adapter into the patient's endotracheal tube while he was on volume-cycled ventilation. His trachea and flavio were sharp. The left mainstem bronchus, left upper lobe, and left lower lobe were normal in appearance. The right mainstem bronchus, right upper lobe, and right middle lobe were of normal in appearance. At the right lower lobe anterior segment, there were circumferential narrowing. The remainder of the segments of the right lower lobe were normal. I could not pass the scope into the right lower lobe anterior segment. This area was brushed. Endobronchial transbronchial biopsies were done this area under fluoroscopic guidance. Specimens were sent for pathology and micro. Tolerated the procedure well. Job ID: [id number]
[2020-08-23] MEDS: Morphine 2 MG/ML VIAL SLOW IVP PRN (22:02)
[2020-08-24 02:27] LABS: #Basophils 0.1 thou/uL (0.0-0.2); #Eosinphils 0.3 thou/uL (0.0-0.7); #Lymphocytes 2.4 thou/uL (1.20-3.40); #Monocytes 1.6 thou/uL (0.11-0.59); #Neutrophils 9.2 thou/uL (1.40-6.50); %Basophils 0.6 % (0.0-1.0); %Eosinophils 1.9 % (0.0-10.0); %Lymphocytes 17.9 % (21.0-51.0); %Monocytes 11.7 % (0.0-10.0); Hemoglobin 12.5 g/dL (14.0-18.0); Mean Corpuscular HGB CONC 33.9 g/dL (32.0-36.0); Mean Corpuscular Hemoglobin 31.2 pg (27.0-31.0); Mean Corpuscular Volume 92.2 fL (78.0-98.0); Mean Platelet Volume 6.5 fL (7.4-10.4); Platelet Count 523 thou/uL (130-400); Red Blood Cell (RBC) Count 4.02 mill/uL (4.70-6.10); White Blood Cell (WBC) Count 13.5 thou/uL (4.8-10.8)
[2020-08-24 02:46] LABS: Anion Gap 12 mmol/L (10-20); BUN (Urea Nitrogen) 12 mg/dL (8.4-25.7); Calc. Creatinine Clearance 65 mL/min (70-130); Calcium 7.9 mg/dL (7.8-10.44); Carbon Dioxide 25 mmol/L (23-31); Chloride 102 mmol/L (98-107); Estimated GFR-MDRD 66; Glucose 180 mg/dL (83-110); Magnesium 1.6 mg/dL (1.6-2.6); Potassium 3.3 mmol/L (3.5-5.1); Sodium 136 mmol/L (136-145)
[2020-08-24] MEDS: Sodium Chloride 0.9% 1,000 ML IV SCH (05:35)
[2020-08-24] MEDS: Enoxaparin Sodium 40 MG/0.4 ML SYRINGE SC SCH (09:54)
[2020-08-24] MEDS: Famotidine 20 MG TAB PO SCH (09:54)
[2020-08-24] MEDS: Insulin Glargine 20 UNITS in Pre-Filled Syringe 1 EACH SC SCH (09:55)
--- NOTE | 2020-08-24 12:21 | PDOC.DS.DS ---
Provider - Provider Date of Admission: 08/20/20 16:48 Admitting Provider: Eric Garcia MD Primary Care Physician: OUT OF TOWN Course - Hospital Course Hospital Course: 80-year-old male presented with (1) CAP (community acquired pneumonia) Code(s): J18.9 - PNEUMONIA, UNSPECIFIED ORGANISM Status: Acute (2) Sepsis Code(s): A41.9 - SEPSIS, UNSPECIFIED ORGANISM Status: Acute (3) Mass of right lung Code(s): R91.8 - OTHER NONSPECIFIC ABNORMAL FINDING OF LUNG FIELD Status: Acute (4) Delirium due to another medical condition Code(s): F05 - DELIRIUM DUE TO KNOWN PHYSIOLOGICAL CONDITION Status: Acute (5) Diabetes mellitus type 2, insulin dependent Code(s): E11.9 - TYPE 2 DIABETES MELLITUS WITHOUT COMPLICATIONS; 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 -Make sure electrolytes are replenished. Peritracheal node on the lower right hilum mass and narrowing of the bronchus. -Probable bronchoscopy evaluation with biopsy done on .. Postprocedure if he is doing well [hemodynamically stable], will plan for discharge and then follow-up for the biopsy results as well as further plan as an outpatient. Leukocytosis trending down -Blood cultures negative so far -Negative for influenza test Procedure he did very well. However he did had multifocal tachycardia episode last night. It is one event. After that he was in sinus rhythm the entire day. Touch peripherally with Dr. Garcia regarding multifocal atrial tachycardia. He would benefit with calcium channel mian. For which I have given the small dose as an inpatient and then discharged with the same. Patient also will be discharged with antibiotic to complete the course for 7-day for community- acquired pneumonia. -dc'd daniele. zithromax Discharge time over 30-minute Resuscitation Status: 08/20/20 16:48 Resuscitation Status Routine Resuscitation Status: FULL: Full Resuscitation Discussed with: Patient - Labs Lab Results: 08/24/20 01:53 08/24/20 01:54 Abnormal Lab Results - Last 48 hrs 08/23/20 03:56: WBC 17.2 H, RBC 4.24 L, Hgb 13.0 L, Hct 39.9 L, RDW 10.9 L, Plt Count 497 H, MPV 6.7 L, Lymphocytes % 15.1 L, Monocytes % 10.2 H, Neutrophils # 12.5 H, Monocytes # 1.8 H 08/24/20 01:53: WBC 13.5 H, RBC 4.02 L, Hgb 12.5 L, Hct 37.1 L, MCH 31.2 H, RDW 11.0 L, Plt Count 523 H, MPV 6.5 L, Lymphocytes % 17.9 L, Monocytes % 11.7 H, Neutrophils # 9.2 H, Monocytes # 1.6 H 08/24/20 01:54: Potassium 3.3 L Microbiology - Entire Visit 08/23/20 12:22 Bronchial Washing Respiratory Culture - Preliminary 08/20/20 15:48 Venous blood - Left Arm Blood Culture - Preliminary NO GROWTH AT 48 HOURS 08/20/20 16:03 Venous blood - Left Hand Blood Culture - Preliminary NO GROWTH AT 48 HOURS 08/20/20 17:14 Nasal swab Influenza Types A,B Direct EIA - Final - Physical Exam Vitals: Vital Signs (12 hours) Temp Pulse Resp BP Pulse Ox 08/24/20 07:45 99.3 F 85 16 140/69 96 08/24/20 03:33 97.6 F 77 18 168/73 H 96 Weight Weight 186 lb 6 oz Physical Exam: The patient was seen and examined on the day of discharge. Discharge plan discussed with him. He will follow with Dr. Etienne on the biopsy result. I talked to Dr. Etienne as well. And he had an overnight episode of multifocal atrial tachycardia I peripherally attached regarding this with the Dr. Garcia and the he will follow up in the clinic. A prescription for calcium channel mian given. Plan - Discharge Medications Prescriptions: Diltiazem CD [Cardizem CD] 120 mg PO DAILY 30 Days #30 cap Home Medications: Medication Instructions Recorded Confirmed Type DULoxetine [Cymbalta] 60 mg PO DAILY 08/20/20 08/20/20 History Insulin Glargine,Hum.Rec.Anlog 20 unit SC BID 08/20/20 08/20/20 History [Basaglar Kwikpen U-100] Lisinopril [Zestril] 20 mg PO DAILY 08/20/20 08/20/20 History Meloxicam [Mobic] 15 mg PO DAILY 08/20/20 08/20/20 History Oxybutynin Chloride [Ditropan XL] 10 mg PO DAILY 08/20/20 08/20/20 History Simvastatin [Zocor] 20 mg PO QPM 08/20/20 08/20/20 History lamoTRIgine [LaMICtal] 150 mg PO BID 08/20/20 08/20/20 History metFORMIN [Glucophage] 500 mg PO BID-WM 08/20/20 08/20/20 History Diltiazem CD [Cardizem CD] 120 mg PO DAILY 30 Days #30 cap 08/24/20 Rx Allergies: sulfur [From Sulfur-8] Allergy (Verified 08/20/20 21:42) - Discharge Instructions Discharge Instructions:: Primary care physician in 1 week. Follow-up with Dr. Etienne in 1 to 2 weeks. Follow-up with oncology clinic in 2 to 3 weeks. Either oncology or pulmonary clinic will contact you for the appointments You have multifocal atrial tachycardia please follow-up with Dr. Garcia shellacker in 1 to 2 weeks. Activity:: Activity as Tolerated Nourishment:: Regular Diet - Follow up Plan Referrals: [facility],OUT OF [Primary Care Provider] - 7 Days (Please follow up with your primary care provider in 1 week.) Cortez Etienne MD [Active] - 14 Days (Please follow up with Dr. Etienne in 2 weeks.) Disposition: HOME Quality - Care Measures CORE MEASURES:: N/A
[2020-08-24] MEDS: cefTRIAXone\\ROCEPHIN 2 GM in Sodium Chloride 0.9% 100 ML IVPB SCH (13:03)
[2020-08-24 13:06] VITALS: BP 139/70; TEMP 98.7
--- NOTE | 2020-08-25 06:58 | EKG ---
Test Reason : Blood Pressure : / mmHG Vent. Rate : 123 BPM Atrial Rate : 141 BPM P-R Int : 000 ms QRS Dur : 088 ms QT Int : 310 ms P-R-T Axes : 071 205 057 degrees QTc Int : 443 ms Sinus tachycardia with 2nd degree A-V block (Mobitz I) Right superior axis deviation Possible Right ventricular hypertrophy Abnormal ECG Confirmed by CARLOS A GARG MD ([id number]) on 08/25/2020 6:58:09 AM Referred By: MARBELLA JEAN BAPTISTE Confirmed By:CARLOS A GARG MD
--- NOTE | 2020-08-27 07:02 | EKG ---
Test Reason : STAT Blood Pressure : / mmHG Vent. Rate : 099 BPM Atrial Rate : 144 BPM P-R Int : 000 ms QRS Dur : 086 ms QT Int : 352 ms P-R-T Axes : 000 105 015 degrees QTc Int : 451 ms Atrial fibrillation Rightward axis Low voltage QRS Abnormal ECG Confirmed by CARLOS A GARG MD ([id number]) on 08/27/2020 7:01:46 AM Referred By: KELLI Confirmed By:CARLOS A GARG MD
== END 2020-08-24 13:00 | disposition home or self-care (01) | DRG 853 ==
LOC: SUATTDRO 13:26 → ERS 13:26 → ONC 16:48 → 2NO 08-21 12:32
PROVIDERS: ADMIT Emergency Medicine; ATTEND Internal Medicine
PROC: 0BBK8ZX Excision of Right Lung, Via Natural or Artificial Opening Endoscopic, Diagnostic (ICD-10-PCS; principal; 2020-08-23)
DX: A41.9 Sepsis, unspecified organism (principal); J18.9 Pneumonia, unspecified organism; F05 Delirium due to known physiological condition; J98.11 Atelectasis; E78.00 Pure hypercholesterolemia, unspecified; E11.40 Type 2 diabetes mellitus with diabetic neuropathy, unspecified; I44.1 Atrioventricular block, second degree; F32.9 Major depressive disorder, single episode, unspecified; Z20.828 Contact with and (suspected) exposure to other viral communicable diseases; R91.8 Other nonspecific abnormal finding of lung field; Z79.4 Long term (current) use of insulin; Z79.899 Other long term (current) drug therapy; Z90.49 Acquired absence of other specified parts of digestive tract
CPT/HCPCS: 36415; 36416; 70450; 71275; 72125; 80048; 82330; 82803; 83605; 83735; 83930; 85025; 87070; 87102; 87116; 87205; 87206; 87804; 88112; 88305; 93005; 93010; 96374; J0696; J1650; J1815; J2270; J2405; J2704; J3010; J3370; J3490; J7050; Q9967; U0002

== ENCOUNTER 2020-09-08 13:03 | Outpatient (CLI) | payer MEDICARE ==
--- NOTE | 2020-09-08 13:55 | RAD ---
TWO VIEW CHEST: INDICATION: Dyspnea. COMPARISON: 08/20/2020 portable film. FINDINGS: Continued right basilar infiltrate and atelectasis obscuring the right hemidiaphragm. Left lung maine ins clear. Vasculature normal. Heart size is normal. IMPRESSION: Persistent right lower lobe infiltrate and atelectasis. Probable small effusions. POS: AGW
== END 2020-09-08 13:04 | disposition home or self-care (01) ==
LOC: BICRAD 13:03
PROVIDERS: ATTEND Internal Medicine Critical Care Medicine
DX: R06.00 Dyspnea, unspecified (principal); R91.8 Other nonspecific abnormal finding of lung field; J98.11 Atelectasis
CPT/HCPCS: 71046

== ENCOUNTER 2020-09-28 13:09 | Outpatient (CLI) | payer MEDICARE ==
--- NOTE | 2020-09-28 13:28 | RAD ---
EXAM: XR Chest Pa Lat STANDARD PROVIDED CLINICAL HISTORY: Dyspnea COMPARISON: 09/08/2020 FINDINGS: Cardiac and mediastinal silhouette is unchanged in appearance. There is persistent consolidation invo lving the right lower lobe. Widening of the right posterior costophrenic angle may reflect pleural fluid. Stable blunting of the left costophrenic angle laterally. Lungs appear otherwise clear. There is no evidence for pneumothorax. IMPRESSION: Persistent right lower lobe consolidation.
== END 2020-09-28 13:10 | disposition home or self-care (01) ==
LOC: BICRAD 13:09
PROVIDERS: ATTEND Internal Medicine Critical Care Medicine
DX: R06.00 Dyspnea, unspecified (principal); J18.1 Lobar pneumonia, unspecified organism
CPT/HCPCS: 71046

== ENCOUNTER 2020-10-15 08:50 | Outpatient (CLI) | payer MEDICARE ==
--- NOTE | 2020-10-15 12:06 | PET ---
PET CT: HISTORY: An 80-year-old male with suspected lung cancer. TECHNIQUE: PET scanning with CT attenuation correction is performed from the base of the brain through the proxi mal thighs following the intravenous administration of 11.4 mCi [id number]. COMPARISON: None. CORRELATION: CT chest of 08/20/2020. FINDINGS: No josey hypermetabolism is seen in the neck, chest, axilla, abdomen, or pelvis. No hypermetabolic p ulmonary nodules/masses, liver, adrenal, or skeletal lesions are seen. There is physiologic activity in GI and tracts, heart, and the visualized portions of the brain. The CT scan used for attenuation correction demonstrates no evidence of pleural effusions or ascites. The atelectatic change in the right lower lobe noted on the CT scan of 08/20/2020 demonstrates interv al decrease in size. There are bilateral renal cysts, small hiatal hernia, tiny nonobstructing left renal calculus, and sigmoid diverticulosis. IMPRESSION: No evidence of malignancy/metastatic disease. POS: FLORES
== END 2020-10-15 08:51 | disposition home or self-care (01) ==
LOC: PET 08:50
PROVIDERS: ATTEND Internal Medicine Critical Care Medicine
DX: R91.8 Other nonspecific abnormal finding of lung field (principal)
CPT/HCPCS: 78815; A9552